=== PATIENT | male | born 1975 | race Caucasian/White ===

== ENCOUNTER 2022-05-28 12:07 | Emergency (ER) | payer OTHER ==
--- NOTE | 2022-05-28 12:37 | XRAY Report ---
PROCEDURE: Chest 2 View X-Ray INDICATIONS: cough with SOA TECHNIQUE: 2 views of the chest were acquired. COMPARISON: None FINDINGS: Surgical changes and devices: None. Lungs and pleura: No pleural effusions or pneumothorax. Mildly increased bronchovascular markings in bilateral hilar region are seen with mild bronchial wall thickening. No definite focal infiltrate. Mediastinum: Mediastinal contours are normal. Heart size is borderline enlarged. Bones and chest wall: No suspicious bony abnormalities. Soft tissues appear unremarkable. IMPRESSION: Suggestion of mild reactive airway disease such as bronchitis or viral illness. No definite focal inf iltrate. No pleural effusion or pneumothorax. Reviewed by: Amari Orellana MD on 05/28/2022 12:36 PM PST Approved by: Amari Orellana MD on 05/28/2022 12:36 PM PST Station ID: [id number]
[2022-05-28 14:07] VITALS: BP 142/96
--- NOTE | 2022-05-28 14:32 | ED Physician Documentation ---
PD HPI URI - Stated complaint Stated Complaint: HIGH HR/CHEST TIGHTNESS - Chief complaint Chief Complaint: Cardiac - History obtained from History obtained from: Patient - Additional information Additional information: Patient is a 46-year-old male with no significant past medical history presenting for evaluation of [facility]. Patient reports having URI symptoms with nonproductive cough, congestion since May 15. He has been to the acute care clinic with a negative COVID and flu test. He went to see his primary home care specialist today. While being evaluated there they noted that his heart rate was above 100 and were not able to see it come down below that so directed him to the emergency department. He denies having chest pain other than when he coughs. He denies having difficulty breathing. He denies fever, abdominal pain, vomiting or diarrhea. He has been using [id number] medications including medications with phenylephrine but has not had any doses this Morning.He does not feel palpitations or that his heart is racing. Review of Systems Constitutional: denies: Fever Nose: reports: Congestion Cardiac: denies: Chest pain / pressure Respiratory: reports: Cough. denies: Dyspnea GI: denies: Abdominal Pain, Vomiting : denies: Dysuria Musculoskeletal: denies: Back pain Neurologic: denies: Headache PD PAST MEDICAL HISTORY - Present Medications Home Medications: Ambulatory Orders Medication Instructions Recorded Confirmed Benzonatate [Tessalon] 200 mg PO QID PRN #15 cap 05/28/22 - Allergies Allergies/Adverse Reactions: Allergies Allergy/AdvReac Type Severity Reaction Status Date / Time No Known Drug Allergies Allergy Verified 05/28/22 12:23 PD ED PE NORMAL - General General: Alert and oriented X 3, No acute distress, Well developed/nourished - HEENT HEENT: Atraumatic, Moist mucous membranes, Pharynx benign, Other (No sinus tenderness Or fullness) - Neck Neck: Supple, no meningeal sign - Cardiac Cardiac: RRR, No murmur - Respiratory Respiratory: No respiratory distress, Clear bilaterally - Abdomen Abdomen: Soft, Non tender - Derm Derm: Warm and dry - Extremities Extremities: No edema - Neuro Neuro: Normal speech Results - Vitals Vitals: Vital Signs - 24 hr 05/28/22 05/28/22 12:13 14:07 Temperature 36.3 C L Heart Rate 92 84 Respiratory 14 15 Rate Blood Pressure 142/103 H 142/96 H O2 Saturation 98 99 Oxygen O2 Source Room air - EKG (time done) 1218 Rate: Rate (enter#) (92) Rhythm: NSR Ischemia: No: ST elevation c/w ischemia Other comments: Other comments (Occasional PVCs) Compare to prior EKG: Old EKG unavailable PD Medical Decision Making - ED course Complexity details: reviewed results, d/w patient ED course: Patient presenting for evaluation of elevated heart rate this morning in the setting of URI symptoms. His vitals have been stable here. His EKG demonstrates a sinus rhythm with occasional PVCs. Patient is asymptomatic in regards to the PVCs. His chest x-ray is negative for signs of pneumonia. His symptoms are likely related to a viral illness. Recommend continued hydration and supportive care. Patient is counseled on concerning symptoms to return for. He denies symptoms to suggest ACS.PERC negative.Patient is ambulatory at discharge. Departure - Departure Disposition: 01 Home, Self Care Clinical Impression: URI (upper respiratory infection) Condition: Stable Instructions: ED Upper Resp Infec No Abx Tx Prescriptions: Benzonatate [Tessalon] 200 mg PO QID PRN #15 cap PRN Reason: Cough Comments: Your heart rate in the emergency department has been within normal limits. Your chest x-ray Does not show signs of pneumonia. Your symptoms are likely related to a viral illness. I have sent a cough medication to [facility] in [place].If you have any worsening symptoms such as labored breathing, chest pain, any concerns please return to the emergency department. Discharge Date/Time: 05/28/22 14:45
== END 2022-05-28 14:45 | disposition home or self-care (01) ==
LOC: ED 12:07
DX: J06.9 Acute upper respiratory infection, unspecified (principal)
CPT/HCPCS: 93005; 99283; 99284

== ENCOUNTER 2022-08-14 14:53 | Outpatient (CLI) | payer OTHER ==
[2022-08-14 15:37] VITALS: BP 100/62
--- NOTE | 2022-08-14 15:37 | SLEEP CARE CONSULTATION ---
Information from patient questionnaire entered by Wallace Cavazos. I have reviewed and concur with the information entered by Wallace Cavazos. This document represents the service I personally performed and the decisions made by me, Rosey العلي ARNP. History of Present Illness Service Date and Time: 08/14/2022 1453 Reason for Visit: New patient Chief Complaint: reports: Unrefreshed sleep, Snoring, Fatigue, Frequent awakenings at night Date of Onset: 5+YRS Usual bedtime: 1000PM Time it takes to fall asleep: 1-2HRS, better lately (45-60 minutes) Snores at night: Yes Observed to quit breathing while asleep: No Sleeps alone due to snoring: Yes (wears earplugs lately) Number of times waking at night: 2-3 Reasons for waking at night: reports: Snoring, Pain, Bathroom. denies: Choking, Gasping for air Toss, Turn, or Twitch while sleeping: Yes Recalls having dreams: Yes Usually gets out of bed at: 0530-600AM Feels refreshed in the morning: No Morning headache: Yes (1 time a week; RESOLVES AFTER TAKING TYLENOL) Sleepy or fatigued during the day: Yes Ever fallen asleep while driving: No Takes day naps: No Dreams during day naps: No Prior sleep studies: No Additional HPI information: I had the pleasure of seeing STACY LAGOS today regarding the possibility of him having a sleep disorder. His current complaints are snoring, fatigue and frequent night awakenings. He states he is snoring and has fatigue during the day. His and kids are complaining of his loud snoring. - Parasomnia Symptoms Ever been unable to move upon waking from sleep: No Walks in sleep: No Talks in sleep: No Ever acted out dreams in sleep: No Ever felt weak in the knees when startled or emotional: No Bothered by creepy, crawly, restless sensations in legs: No Problems with memory or concentration: Yes (memory; concentration too) Subjective Initial [place] Sleepiness Scale score: 10 (07/29/22) Past Medical History Past Medical History: reports: Arrythmia Social History The patient's occupation is a AM. Patient is and lives in . Have you smoked in the past 12 months: No Alcohol use: Yes Alcohol amount and frequency: 1 DRINK A MONTH Caffeine use: No Caffeine amount and frequency: QUIT 2 WEEKS AGO Family History Family history of sleep disordered breathing: Yes Family Hx Sleep Apnea: Father: Snoring, Sibling: Snoring Allergies and Home Medications Known drug allergies: No Drug allergies reviewed: Yes Home medication list reviewed: Yes (OTC tylenol or ibuprofen as needed) Allergy and home medication list: Allergies No Known Drug Allergies Allergy (Verified 08/13/22 15:13) Review of Systems Weight loss over past 5 years: 16 since June Cardiovascular: reports: irregular heart rate or pulse (Echo scheduled for September). denies: high blood pressure Gastrointestinal: denies: heartburn Neurological: reports: headaches Psychiatric: denies: anxiety, depression Ear/Nose/Throat: reports: nasal congestion, sinus problems, injury to nose, wisdom teeth removed. denies: tonsillectomy Endocrine: reports: sluggishness Musculoskeletal: reports: joint pain Immunologic: reports: sneezing Physical Exam Vital signs obtained and entered by: WALLACE Hidalgo MA Blood Pressure: 100/62 (LEFT ARM) Cuff size: regular Heart Rate: 94 O2 Saturation: 97 Height: 5 ft 9 in Weight: 181 lb 12.8 oz Body Mass Index: 26.8 BMI Classification: Overweight Neck circumference: 16 Mouth and throat: narrow oropharynx Soft palate: long Hard palate: normal Uvula: normal Uvula visualization: 25% Mallampati Class III Tongue: enlarged in size with teeth flor on lateral edges Tonsils: small Neck: normal w/o lymphadenopathy or thyromegaly Heart: irregular rhythm Lungs: clear bilaterally Impression and Plan 1. Suspected Obstructive Sleep Apnea-Hypopnea Syndrome, as suggested by a history of loud and irregular snoring, frequent night awakenings, morning headache, unrefreshed sleep, cognitive impairment, and excessive daytime sleepiness. Narrow oropharynx and obesity are common predisposing factors for obstructive sleep apnea-hypopnea syndrome. I recommend proceeding to polysomnography to confirm the diagnosis and to assess severity. If the patient has significant sleep disordered breathing, a manual CPAP titration study will also be performed to find the optimal treatment pressure. I informed the patient of what the sleep studies involve and after some discussion, obtained agreement to proceed. The pathophysiology of obstructive sleep apnea-hypopnea syndrome was discussed with the patient and health risks of cardiovascular and cerebrovascular disease if not treated. Risks of drowsy driving discussed in d etail and patient advised to avoid long distance driving and to nail puller at the first sign of drowsiness. Patient agreed to plan. * Schedule polysomnography * Avoid long distance driving or driving when feeling sleepy. * Avoid alcohol, sedative and muscle relaxant around bedtime. * Attempt to lose weight. * Review instructions provided by trained office staff on how to prepare for the sleep study. * Return for follow-up after sleep study completed. Counseling Topics: Weight loss health impact Visit Type: In Office Time Spent with Patient (minutes): 31 Provider Statement: I spent 100% of the Face to Face Visit with the patient with greater than 50% spent counseling the patient and coordination of care.
== END 2022-08-14 14:54 | disposition home or self-care (01) ==
LOC: SC 14:53
PROVIDERS: ATTEND Nurse Practitioner Family
DX: R06.83 Snoring (principal); G47.8 Other sleep disorders; I49.9 Cardiac arrhythmia, unspecified; E66.3 Overweight; Z68.26 Body mass index [BMI] 26.0-26.9, adult
CPT/HCPCS: 99203; 99212

== ENCOUNTER 2022-09-15 20:28 | Outpatient (CLI) | payer OTHER | END 2022-09-15 20:29 | disposition home or self-care (01) | LOC: SC 20:28 | PROVIDERS: ATTEND Nurse Practitioner Family | DX: G47.33 Obstructive sleep apnea (adult) (pediatric) (principal) | CPT/HCPCS: 95810 ==

== ENCOUNTER 2022-10-14 08:43 | Outpatient (CLI) | payer OTHER ==
--- NOTE | 2022-10-14 09:25 | Sleep Patient Instructions ---
Sleep Center Visit Summary - Patient Visit Information Reason for Visit: Sleep study follow up - Patient Instructions Instructions Attached: Apnea Sleep Mouthpieces Additional Instructions: You have opted for an oral mandibular appliance to control your sleep apnea. A list of certified dentists in the area was provided for you to find a dentist to have your oral appliance made. Once you have the device, please call and make a follow up appointment. We need to see you after you have been using the appliance for a month. We will evaluate your response to therapy and order a follow up sleep study to check efficiency of treatment. Please follow up in the sleep care office after you have your oral appliance. - Clinic Information Contact: [facility] [address] [place] [address] [email or web address] T: [phone]
[2022-10-14 09:30] VITALS: BP 110/66
--- NOTE | 2022-10-14 09:30 | SLEEP CARE CONSULTATION ---
Information from patient questionnaire entered by Gertrudis Cavazos. I have reviewed and concur with the information entered by Gertrudis Cavazos. This document represents the service I personally performed and the decisions made by , Rosey العلي ARNP. History of Present Illness Service Date and Time: 10/14/2022 0843 Initial [place] Sleepiness Scale score: 10 (07/29/22) Current [place] Sleepiness Scale score: 9 (10/14/22) Additional HPI information: STACY LAGOS returns for follow up and results of the recently performed polysomnography. I explained the pathophysiology behind obstructive sleep apnea. We then spent quite a bit of time discussing different treatment options. For mild obstructive sleep apnea, surgery and oral appliance are alternatives to nasal CPAP therapy but in moderate or severe cases, nasal CPAP is the most effective and reliable treatment. Because apnea is primarily in supine position, then positional management therapy could be effective. Methods discussed such as positioning with pillows, using a T-shirt with tennis balls in the back or commercial products that have a pillow format on back to prevent supine sleep. I reviewed the impact of weight changes on sleep apnea and strongly recommended losing weight. After some discussion, the patient opted to go with the oral mandibular appliance. Patient counseled not drink alcohol less than 4 hours before bedtime as it can increase snoring and apnea. Patient was cautioned about risks of drowsy driving until sleepiness symptoms resolve. Sleep Study - Results Type of Sleep Study: Polysomnography (COMPLETED 09/15/22) Prior sleep studies: No Polysomnography/Home Sleep Study results: IMPRESSION: The quality of the study is good. The patient had slightly reduced sleep efficiency due to frequent awakenings after the sleep onset. The sleep architecture was abnormal for sleep fragmentation and reduced amount of time spent in REM and slow wave sleep (N3). Respiratory monitoring showed mild obstructive sleep apneahypopnea (AHI = 6.2) associated with frequent arousals, oxyhemoglobin desaturation and mild hypoxia (kristi oxygen saturation of 89%). The respiratory events occurred only during supine sleep (supine AHI = 10.9; nonsupine = 0.00). Snore was infrequent and moderate in intensity. There was no significant periodic leg movement of sleep. Cardiac rhythm was normal sinus rhythm with occasional premature ventricular contractions. No abnormal behavior (parasomnia) observed during the night. Allergies and Home Medications Known drug allergies: No Drug allergies reviewed: Yes Home medication list reviewed: Yes (meloxicam) Allergy and home medication list: Allergies No Known Drug Allergies Allergy (Verified 10/13/22 08:40) Review of Systems Review of systems same as previous: No (quadriceps strain) Physical Exam Vital signs obtained and entered by: GERTRUDIS Hidalgo MA Blood Pressure: 110/66 (LEFT ARM) Cuff size: regular Heart Rate: 67 O2 Saturation: 97 Height: 5 ft 9 in Weight: 188 lb 6.4 oz Body Mass Index: 27.8 BMI Classification: Overweight Impression and Plan 1. Obstructive Sleep Apnea-Hypopnea Syndrome, mild, with lowest oxygen saturation of 89%. Obviously this is the cause of the patients symptoms of unrefreshed sleep, and excessive daytime sleepiness. Positive pressure therapy could benefit arrhythmia. After some discussion, the patient opted to go with the oral appliance. A list of accredited dentists and one non-accredited dentist in general area to call for a consult. A prescription was given to start process. Patient advised to check insurance to see if oral appliance is covered. Some dentists do not take Medicare. I will have patient follow up in about 3 months to check effectiveness of treatment. If reduction of symptoms and comfortable with treatment, a polysomnography will be ordered using the oral appliance to check efficacy of treatment. * Oral appliance. * Attempt to lose weight. * Avoid alcohol consumption near bedtime. * Avoid supine sleep. * The patient is again cautioned about driving until sleepiness completely resolves. * Return one month after oral appliance obtained. I will assess response to therapy at that time. Counseling Topics: Sleeping position, Weight loss health impact Visit Type: In Office Time Spent with Patient (minutes): 14 Provider Statement: I spent 100% of the Face to Face Visit with the patient with greater than 50% spent counseling the patient and coordination of care.
== END 2022-10-14 08:44 | disposition home or self-care (01) ==
LOC: SC 08:43
PROVIDERS: ATTEND Nurse Practitioner Family
DX: G47.33 Obstructive sleep apnea (adult) (pediatric) (principal); E66.3 Overweight; Z68.27 Body mass index [BMI] 27.0-27.9, adult
CPT/HCPCS: 99212

== ENCOUNTER 2023-12-22 03:46 | Emergency (ER) | payer OTHER ==
--- NOTE | 2023-12-22 03:59 | ED Physician Documentation ---
PD HPI CHEST PAIN - Stated complaint Stated Complaint: ABD PX/CHEST/BACK PX/VOMITING - History obtained from History obtained from: Patient - Additional information Additional information: HPI from patient. Patient complains of upper abdominal pain, predominantly midline with radiation to his back, sudden onset approximately 11 PM tonight while at home at rest. Pain waxes and waning without any apparent exacerbating nor ameliorating fac tors. He has had nausea and vomiting. Also notes diaphoresis when the pain is most intense. Denies shortness of breath. Patient says he has had similar episodes in the past and has mentioned these to his PCP; no testing has been done thus far. Aside from PVCs (for which he takes metoprolol), patient denies past cardiac history. He says he had a stress test and echocardiogram approximately 1 year ago with unremarkable results. Review of Systems Constitutional: reports: Sweats. denies: Fever Cardiac: reports: Reviewed and negative Respiratory: reports: Reviewed and negative GI: reports: Abdominal Pain, Nausea, Vomiting : denies: Dysuria, Frequency PD PAST MEDICAL HISTORY - Past Medical History Past Medical History: Yes Cardiovascular: Other (PVCs) - Past Surgical History Past Surgical History: Yes General: Appendectomy - Present Medications Home Medications: Ambulatory Orders Medication Instructions Recorded Confirmed Metoprolol Succinate [Toprol Xl] 50 mg PO DAILY 12/22/23 12/22/23 Ondansetron Odt [Zofran] 4 mg TL Q6H PRN #10 tablet 12/22/23 Oxycodone HCl/Acetaminophen 1 - 2 each PO Q6HR PRN #14 tablet 12/22/23 [Percocet 5-325 mg Tablet] - Allergies Allergies/Adverse Reactions: Allergies Allergy/AdvReac Type Severity Reaction Status Date / Time No Known Drug Allergies Allergy Verified 12/22/23 04:04 PD ED PE NORMAL - Vitals Vital signs reviewed: Yes - General General: Alert and oriented X 3, Well developed/nourished, Other (obvious moderate painful distress) - Cardiac Cardiac: RRR (frequent extra beats that correlate with PVCs on electronic device monitor) - Respiratory Respiratory: No respiratory distress, Clear bilaterally - Abdomen Abdomen: Soft, Non distended, Other (mild TTP RUQ and epigastrium without guarding or rebound) - Back Back: No CVA TTP - Derm Derm: No rash - Extremities Extremities: No edema Results - Vitals Vitals: Vital Signs - 24 hr 12/22/23 12/22/23 12/22/23 04:01 04:15 05:53 Temperature 36.8 C Heart Rate 77 77 84 Respiratory 20 22 16 Rate Blood Pressure 135/93 H 124/94 H 117/85 H O2 Saturation 100 100 99 12/22/23 12/22/23 07:00 07:44 Temperature 36.5 C Heart Rate 84 70 Respiratory 16 20 Rate Blood Pressure 135/95 H 112/75 O2 Saturation 95 97 Oxygen O2 Source Room air - EKG (time done) No standard instances EKG releavant findings:: EKG personally interpreted by author of this note. Relevant findings are: Rate: Rate (enter#) (74) Rhythm: NSR [place]: LAD (borderline LAD) Intervals: Normal PA QRS: Normal Ischemia: Normal ST segments Computer interpretation: Disagree with computer (no ST depression; I do not see convincing PVC on this EKG (artifact noted which is likely reason for computer's interpretation of PVCs)) - Labs Labs: Laboratory Tests 12/22/23 12/22/23 12/22/23 04:00 04:00 04:00 WBC 11.1 H RBC 5.29 Hgb 15.2 Hct 44.2 MCV 83.6 MCH 28.7 MCHC 34.4 RDW 12.3 Plt Count 356 MPV 8.9 Neut # (Auto) 7.8 H Lymph # (Auto) 2.3 [place] # (Auto) 0.8 Eos # (Auto) 0.1 Baso # (Auto) 0.1 Absolute Nucleated RBC 0.00 Nucleated RBC % 0.0 D-Dimer < 200.0 L Sodium Potassium Chloride Carbon Dioxide Anion Gap BUN Creatinine Estimated GFR (MDRD) Glucose Calcium Total Bilirubin AST ALT Alkaline Phosphatase Troponin I High Sens < 2.3 L Total Protein Albumin Globulin Albumin/Globulin Ratio Lipase Urine Color Urine Clarity Urine pH Ur Specific [place] Urine Protein Urine Glucose (UA) Urine Ketones Urine Occult Blood Urine Nitrite Urine Bilirubin Urine Urobilinogen Ur Leukocyte Esterase Ur Microscopic Review Urine Culture Comments Nasal Adenovirus (PCR) Nasal B. parapertussis DNA (PCR) Nasal Coronavir 229E PCR Nasal Coronavir HKU1 PCR Nasal Coronavir NL63 PCR Nasal Coronavir OC43 PCR Nasal Enterovir/Rhinovir PCR Nasal Influenza B PCR Nasal Influenza A PCR Nasal Parainfluen 1 PCR Nasal Parainfluen 2 PCR Nasal Parainfluen 3 PCR Nasal Parainfluen 4 PCR Nasal RSV (PCR) Nasal B.pertussis DNA PCR Nasal C.pneumoniae (PCR) Noel Human Metapneumo PCR Nasal M.pneumoniae (PCR) Nasal SARS-CoV-2 (PCR) 12/22/23 12/22/23 12/22/23 04:00 04:53 06:50 WBC RBC Hgb Hct MCV MCH MCHC RDW Plt Count MPV Neut # (Auto) Lymph # (Auto) [place] # (Auto) Eos # (Auto) Baso # (Auto) Absolute Nucleated RBC Nucleated RBC % D-Dimer Sodium 139 Potassium 3.1 L Chloride 102 Carbon Dioxide 23 Anion Gap 14.0 H BUN 19 Creatinine 1.2 Estimated GFR (MDRD) 65 L Glucose 145 H Calcium 11.0 H Total Bilirubin 0.6 AST 21 ALT 26 Alkaline Phosphatase 67 Troponin I High Sens Total Protein 7.6 Albumin 4.6 Globulin 3.0 Albumin/Globulin Ratio 1.5 Lipase 44 Urine Color YELLOW Urine Clarity CLEAR Urine pH 8.5 H Ur Specific [place] 1.020 Urine Protein NEGATIVE Urine Glucose (UA) NEGATIVE Urine Ketones 15 H Urine Occult Blood NEGATIVE Urine Nitrite NEGATIVE Urine Bilirubin NEGATIVE Urine Urobilinogen 0.2 (NORMAL) Ur Leukocyte Esterase NEGATIVE Ur Microscopic Review NOT INDICATED Urine Culture Comments NOT INDICATED Nasal Adenovirus (PCR) NOT DETECTED Nasal B. parapertussis DNA (PCR) NOT DETECTED Nasal Coronavir 229E PCR NOT DETECTED Nasal Coronavir HKU1 PCR NOT DETECTED Nasal Coronavir NL63 PCR NOT DETECTED Nasal Coronavir OC43 PCR NOT DETECTED Nasal Enterovir/Rhinovir PCR NOT DETECTED Nasal Influenza B PCR NOT DETECTED Nasal Influenza A PCR NOT DETECTED Nasal Parainfluen 1 PCR NOT DETECTED Nasal Parainfluen 2 PCR NOT DETECTED Nasal Parainfluen 3 PCR NOT DETECTED Nasal Parainfluen 4 PCR NOT DETECTED Nasal RSV (PCR) NOT DETECTED Nasal B.pertussis DNA PCR NOT DETECTED Nasal C.pneumoniae (PCR) NOT DETECTED Noel Human Metapneumo PCR NOT DETECTED Nasal M.pneumoniae (PCR) NOT DETECTED Nasal SARS-CoV-2 (PCR) NOT DETECTED - Rads (name of study) chest xray Relevant Findings:: Prelim report reviewed, EMP independent interpretation of test (I reviewed this image and my interpretation is no cardiopulmonary abnormality), See rad report RUQ US Relevant Findings:: Prelim report reviewed, See rad report PD Medical Decision Making - ED course Complexity details: reviewed results, re-evaluated patient, considered differential, d/w patient ED course: On my bedside ultrasound, there appears to be gallbladder sludge as well as a calculus in the gallbladder neck. Patient is given 1 mg IV Dilaudid as well as 4 mg IV Zofran. Mild leukocytosis on otherwise unremarkable CBC (WBC 11.1). Negative D-dimer (< 200), normal high-sensitivity troponin (< 2.3). Normal liver function tests, normal lipase. Mild hypokalemia is incidentally noted (K 3.1) for which he is given 25 meq potassium bicarbonate PO prior to d/c. Ultrasound performed by compression molding machine setter revealing (per radiologist's reading): "Nonmobile gallstone neck of the gallbladder. Borderline gallbladder hydrops. No gallbladder wall thickening [or] pericholecystic fluid. No sonographic Louis's sign although the patient was on pain medication. Echogenic liver reflecting hepatic steatosis or diffuse hepatocellular disease." On reevaluation, the patient is in NAD and reports resolution of his symptoms. Results discussed with patient, return precautions reviewed. Advised him to seek follow-up with general surgery. I have electronically submitted prescriptions for ondansetron and Percocet to [facility] pharmacy in [place]. I am prescribing a short course of short-acting opioid pain medication for this patient. I have reviewed the patients [employer]UC[employer]YS[employer] PROFESSOR and no concerning findings were noted. I have discussed that the opioids are for short term therapy only, and will not be refilled from the ED. Departure - Departure Disposition: 01 Home, Self Care Clinical Impression: Biliary colic, Hypokalemia Condition: Good Instructions: ED Gallstone W Biliary Colic Follow-Up: Kaitlin Boyd DO [Provider Admit Priv/Credential] - Prescriptions: Oxycodone HCl/Acetaminophen [Percocet 5-325 mg Tablet] 1 - 2 each PO Q6HR PRN #14 tablet PRN Reason: Pain >8 Ondansetron Odt [Zofran] 4 mg TL Q6H PRN #10 tablet PRN Reason: Nausea / Vomiting Comments: There were no concerning findings on tonight's blood tests; as we discussed, low potassium level was incidentally noted. You should mention this to your primary care provider when you next see them (potassium level 3.1). The ultrasound confirms a large gallstone which explains your symptoms. You should follow-up with a general surgeon to discuss surgical options for treatment. In the meantime, stay hydrated and use the prescribed pain medication and antinausea medication as per label instruction as needed for the symptoms. I have electronically submitted prescriptions for ondansetron (antinausea medication) and Percocet (narcotic/opiate pain medication) to the [facility] pharmacy in [place]. I am prescribing a short course of narcotic pain medication for you. These are potentially dangerous and addictive medications that should be used carefully. These medications may constipate you. Take an [id number] stool softener (docusate) twice daily with plenty of water while taking these medications. If you go 24 hours without a bowel movement, take [id number] miralax, per package instructions. Do not drink or drive while taking these medications. If you received narcotic or sedating medications while in the emergency department, do not drive for 24 hours. Store this medication in a safe, secure place and out of reach of children. It is a violation of federal law to give or sell this medication to another person or to use in a manner other than prescribed. The ED will not refill narcotic prescriptions, including prescriptions lost or stolen. To dispose of unwanted medications: 1. [facility] at [address] in [place] has a medication drop box. They accept prescription medications (in pill form) Thursday through Thursday 9:00 a.m. to 5:00 p.m. 2. The [facility] [employer] accepts prescription medications (in pill form only) for disposal year round. Call for more information. 3. Contact the [facility] for the next [facility] sponsored prescription drug collection event. , [phone], or [phone]; Forms: PCP List Discharge Date/Time: 12/22/23 07:55
[2023-12-22 04:10] LABS: BASOPHILS # (AUTO) 0.1 10^3/uL (0.0-0.1); BASOPHILS % (AUTO) 0.5 %; EOSINOPHILS # (AUTO) 0.1 10^3/uL (0.0-0.7); HCT - HEMATOCRIT 44.2 % (42.0-52.0); HGB - HEMOGLOBIN 15.2 g/dL (14.0-18.0); LYMPHOCYTES # (AUTO) 2.3 10^3/uL (1.5-3.5); LYMPHOCYTES % (AUTO) 20.3 %; MEAN CORPUSCULAR HEMOGLOBIN 28.7 pg (27.0-31.0); MEAN CORPUSCULAR HGB CONC 34.4 g/dL (32.0-36.0); MEAN CORPUSCULAR VOLUME 83.6 fL (80.0-94.0); MEAN PLATELET VOLUME 8.9 fL (7.4-11.4); MONOCYTES # (AUTO) 0.8 10^3/uL (0.0-1.0); NEUTROPHILS # (AUTO) 7.8 10^3/uL (1.5-6.6); NEUTROPHILS % (AUTO) 70.5 %; PLT - PLATELET COUNT 356 10^3/uL (130-450); RED BLOOD COUNT 5.29 10^6/uL (4.70-6.10); RED CELL DISTRIBUTION WIDTH 12.3 % (12.0-15.0); WHITE BLOOD COUNT 11.1 x10^3/uL (4.8-10.8)
[2023-12-22] MEDS: HYDROmorphone 1 MG/ML CARPUJECT IVP STA (04:16)
[2023-12-22] MEDS: ONDANSETRON 4 MG/2 ML VIAL IVP STA (04:17)
[2023-12-22 05:13] LABS: ALBUMIN 4.6 g/dL (3.2-5.5); ALBUMIN/GLOBULIN RATIO 1.5 (1.0-2.2); BILIRUBIN,TOTAL 0.6 mg/dL (0.2-1.0); CREATININE 1.2 mg/dL (0.6-1.3); POTASSIUM 3.1 mmol/L (3.5-4.5); TOTAL PROTEIN 7.6 g/dL (6.4-8.9)
[2023-12-22 05:28] LABS: B. PARAPERTUSSIS- RESP PCR PAN NOT DETECTED; B. PERTUSSIS- RESP PCR PANEL NOT DETECTED; C. PNEUMONIAE- RESP PCR PANEL NOT DETECTED; CORONAVIRUS 229E-RESP PCR NOT DETECTED; CORONAVIRUS HKU1-RESP PCR NOT DETECTED; CORONAVIRUS NL63-RESP PCR NOT DETECTED; CORONAVIRUS OC43-RESP PCR NOT DETECTED; HUMAN METAPNEUMOVIRUS NOT DETECTED; INFLUENZA A- RESP PCR PANEL NOT DETECTED; INFLUENZA B - RESP PCR PANEL NOT DETECTED; M. PNEUMONIAE- RESP PCR PANEL NOT DETECTED; PARAINFLUENZA VIRUS 1 NOT DETECTED; PARAINFLUENZA VIRUS 2 NOT DETECTED; PARAINFLUENZA VIRUS 3 NOT DETECTED; PARAINFLUENZA VIRUS 4 NOT DETECTED; RHINOVIRUS/ENTEROVIRUS NOT DETECTED; RSV- RESP PCR PANEL NOT DETECTED; SARS-CoV-2 -RESP PCR PANEL NOT DETECTED
[2023-12-22 06:55] LABS: BILIRUBIN,URINE NEGATIVE (NEGATIVE); GLUCOSE, URINE (UA) NEGATIVE (NEGATIVE); KETONES,URINE (UA) 15 mg/dL (NEGATIVE); LEUKOCYTE ESTERASE, URINE NEGATIVE (NEGATIVE); NITRITE,URINE NEGATIVE (NEGATIVE); OCCULT BLOOD,URINE NEGATIVE (NEGATIVE); PH,URINE 8.5 PH (5.0-7.5); PROTEIN,URINE NEGATIVE (NEGATIVE); UROBILINOGEN,URINE 0.2 (NORMAL) E.U./dL (NORMAL)
[2023-12-22 06:56] LABS: CLARITY,URINE CLEAR (CLEAR)
[2023-12-22] MEDS: POTASSIUM BICARB 25 MEQ TABLET PO STA (07:36)
[2023-12-22 07:51] VITALS: BP 112/75; O2SAT 97
--- NOTE | 2023-12-22 08:28 | XRAY Report ---
PROCEDURE: Chest 1V INDICATIONS: chest pain TECHNIQUE: One view of the chest was acquired. COMPARISON: None. FINDINGS: Surgical changes and devices: None. Lungs and pleura: No pleural effusions or pneumothorax. Lungs are clear. Mediastinum: Mediastinal contours appear normal. Heart size is normal. Bones and chest wall: No suspicious bony lesions. Overlying soft tissues appear unremarkable. IMPRESSION: No acute cardiopulmonary process. The above findings are concordant with preliminary report. Reviewed by: Zulma Kennedy MD on 12/22/2023 8:27 AM PDT Approved by: Zulma Kennedy MD on 12/22/2023 8:27 AM PDT Station ID: [id number]
--- NOTE | 2023-12-22 09:14 | Ultrasound Report ---
PROCEDURE: Abdomen Limited INDICATIONS: abd. pain TECHNIQUE: Real-time focused scanning was performed of the abdomen, with image documentation. COMPARISONS: None. FINDINGS: Liver: Liver is normal in size and increased in echotexture. Gallbladder: 2.1 cm stone is present in the gallbladder neck. Wall thickness is measuring 3.1 mm. Biliary ducts: Intrahepatic bile ducts are non-dilated. Extrahepatic bile duct caliber measures 4.4 mm. Normal is 6-7 mm or less in diameter, or 10 mm or less post-cholecystectomy. Pancreas: Not well seen Right kidney: Normal in size and echotexture. Right kidney measures 10.3 cm long. No hydronephrosis or nephrolithiasis. No solid masses. No complex renal cystic lesions which require follow-up. IVC: Intrahepatic inferior vena cava is patent. Miscellaneous: No free abdominal fluid. IMPRESSION: Cholelithiasis with gallbladder wall thickness measuring 3.1 cm, at the upper limits of normal. No pe richolecystic fluid. Recommend clinical correlation. Hepatic steatosis. The above findings are concordant with preliminary report. Reviewed by: Zulma Kennedy MD on 12/22/2023 9:13 AM PDT Approved by: Zulma Kennedy MD on 12/22/2023 9:13 AM PDT Station ID: [id number]
== END 2023-12-22 07:55 | disposition home or self-care (01) ==
LOC: ED 03:46
DX: K80.70 Calculus of gallbladder and bile duct without cholecystitis without obstruction (principal); E87.6 Hypokalemia
CPT/HCPCS: 36415; 71045; 76705; 80053; 81003; 83690; 84484; 85025; 85379; 87633; 93005; 96374; 96375; 99284; A9270; J1170; 81001; 87086